=== PATIENT | male | born 1985 | race Caucasian/White ===

== ENCOUNTER 2020-11-25 23:38 | Inpatient (IN) | payer SELFPAY ==
[2020-11-25 23:39] VITALS: BP 103/53; PULSE 117; RESP 21; TEMP 36.5; O2SAT 91; BMI 28.5
--- NOTE | 2020-11-25 23:41 | RAD_ITS ---
HISTORY: left shoulder pain EXAMINATION/TECHNIQUE: XR Shoulder Min 2 Views: COMPARISON: None FINDINGS: BONES/JOINTS: No acute fracture or dislocation. Preservation of the joint spaces. No sclerotic or destructive changes observed. SOFT TISSUES: Diffuse, hazy airspace opacities in the included lung meléndez. No radiopaque foreign body. RAD/Shoulder min 2 Views IMPRESSION: No acute bony abnormality. Hazy left lung airspace disease suspicious for pneumonia. at 0010 Reported and signed by: Matt Aguayo MD Electronically Signed: Matt Aguayo MD at 0:09 EDT Tel , Service support ,
--- NOTE | 2020-11-25 23:42 | EDS_ITS ---
HPI History of Present Illness Chief Complaint: Overdose Informant: EMS Narrative Narrative: 40-year-old male presents with likely opiate overdose. Patient given 2 separate doses of intranasal Narcan after being found unresponsive. Patient does admit to insufflating drugs but does not know what they were or how much he did. Patient is currently on Suboxone and does have a past medical history of opiate abuse. Complaining of left shoulder pain of unknown origin. States it is aching and worse with movement. Patient also complaining of nausea and vomiting. Patient vomited once on scene. PFSH PFSH Allergy/AdvReac Type Severity Reaction Status Date / Time No Known Allergies Allergy Verified 11/26/20 00:02 Social History Smoking Status: Unknown if ever smoked ROS ROS ED Constitutional Constitutional ED: Denies chills, fever(s) or sweats Eyes Eyes: Denies blurry vision, change in vision or diplopia ENT ENT ED: Denies rhinorrhea or sore throat Cardiovascular Cardiovascular: Denies chest pain, orthopnea, palpitations or racing heartbeat Respiratory/Chest Respiratory/Chest: Denies cough, dyspnea, dyspnea on exertion, orthopnea or sputum Gastrointestinal Gastrointestinal: Reports nausea and vomiting; Denies abdominal pain, constipation, diarrhea or melena Genitourinary Genitourinary ED: Denies dysuria, hematuria or urinary frequency Musculoskeletal Musculoskeletal: Reports arthralgias; Denies myalgias or neck pain Integumentary Denies rash Neurologic Neurologic: Denies headache(s), paresthesias or weakness Psychiatric Psychiatric: Denies anxiety or depression Hematologic/Lymphatic Hematologic/Lymphatic: Denies easy bleeding or easy bruising Allergic/Immunologic Allergic/Immunologic ED: Denies mouth swelling or tongue swelling EXAM Physical Exam Const Vital Signs: 11/25/20 23:39 11/26/20 00:03 11/26/20 00:05 Temperature 97.7 F L Temperature Source Temporal Pulse Rate 117 H 113 H Respiratory Rate 21 H 20 H Blood Pressure 103/53 L 108/47 L Blood Pressure Mean 69 67 Pulse Ox 91 88 Oxygen Delivery Method Room Air Room Air Nasal Cannula Oxygen Flow Rate (L/min) 2 11/26/20 00:48 11/26/20 00:51 11/26/20 00:57 Temperature 98.6 F 98.4 F Temperature Source Temporal Temporal Pulse Rate 102 H Respiratory Rate 20 H Blood Pressure 102/65 Blood Pressure Mean 77 Pulse Ox 88 92 Oxygen Delivery Method Nasal Cannula Nasal Cannula Oxygen Flow Rate (L/min) 2 5 11/26/20 01:34 11/26/20 01:38 Temperature 98.4 F 98.4 F Temperature Source Oral Temporal Pulse Rate 126 H 115 H Respiratory Rate 33 H 28 H Blood Pressure 91/54 L 95/58 L Blood Pressure Mean 66 70 Pulse Ox 92 69 Oxygen Delivery Method Nasal Cannula Nasal Cannula Oxygen Flow Rate (L/min) 5 5 Positive well nourished and well developed General Appearance ED: well developed HEENT Reports TM's clear and moist mucous membranes normocephalic and atraumatic Tympanic Membrane ED: Yes TM's clear Eyes PERRL and EOMs intact bilaterally Neck no lymphadenopathy, supple and no JVD Chest Wall inspection of chest normal Resp normal respiratory effort and clear to auscultation bilaterally Cardio regular rate, S1 normal heart sound, S2 normal heart sound and no murmurs Peripheral Pulses: pulses 2+ throughout GI soft to palpation, non-tender and non-distended Back/Spine no CVA tenderness and no thoracic nor lumbar tenderness Extremity normal to inspection Extremity Narrative: TTP of the left shoulder with no overlying skin changes. Strong and palpable pulses. Sensation intact. General Extremety ED: Negative for edema General Extremity: Negative for edema Neuro oriented x3, CN's II-XII intact bilaterally and no sensory deficits noted Sensorium / Orientation: alert Motor Exam: strength 5/5 throughout Psych mental status grossly normal Skin no rashes or lesions noted MDM MDM MDM Narrative Medical decision making narrative: Patient tachycardic and nauseous likely secondary from acute opiate withdrawal. Was given Zofran and Bentyl. Patient is complaining of left shoulder pain so x-ray was done which shows no acute fracture dislocation. It did however show possible left lung airspace disease. X-ray was done which shows significant aspiration. Patient requiring 5 L by nasal cannula to maintain oxygen saturations of 90%. Lab work was obtained and patient was started on Unasyn. Patient has a lactic acidosis of 3. Blood pressure 95 and 110 systolic. Give 1 L of normal saline. Patient was also given 0.4 mg of Narcan IV which did improve his mental status. Given the patient's hypoxemia as well as aspiration he will be admitted for further treatment and evaluation. Lab Data Labs: Laboratory Results - last 24 hr 11/26/20 11/26/20 11/26/20 01:00 01:00 01:00 WBC 11.8 H RBC 4.95 Hgb 14.7 Hct 45.5 MCV 91.9 MCH 29.7 MCHC 32.3 RDW Std Deviation 48.6 H RDW Coeff of Latricia 14.3 Plt Count 246 MPV 9.6 Immature Gran % (Auto) 0.600 Neut % (Auto) 90.1 H Lymph % (Auto) 2.6 L [place] % (Auto) 6.4 Eos % (Auto) 0.0 Baso % (Auto) 0.3 Absolute Neuts (auto) 10.6 H Absolute Lymphs (auto) 0.31 L Nucleated RBC % 0 PT 13.3 INR 1.1 APTT 28.1 Sodium 141 Potassium 3.5 Chloride 107 Carbon Dioxide 27.0 Anion Gap 7 BUN 16 Creatinine 1.38 H Estim Creat Clear Calc 82.00 Est GFR (MDRD) Af Amer 75 Est GFR (MDRD) Non-Af 62 BUN/Creatinine Ratio 11.6 Glucose 75 Lactic Acid Calcium 8.5 Total Bilirubin 0.20 AST 150 H ALT 100 H Alkaline Phosphatase 133 H Total Protein 6.7 Albumin 3.1 L Globulin 3.6 Albumin/Globulin Ratio 0.9 Urine Color Urine Clarity Urine pH Ur Specific [place] Urine Protein Urine Glucose (UA) Urine Ketones Urine Occult Blood Urine Nitrite Urine Bilirubin Urine Urobilinogen Ur Leukocyte Esterase Urine RBC Urine WBC Ur Squamous Epith Cells Urine Bacteria Hyaline Casts Urine Mucus 11/26/20 11/26/20 01:00 01:40 WBC RBC Hgb Hct MCV MCH MCHC RDW Std Deviation RDW Coeff of Latricia Plt Count MPV Immature Gran % (Auto) Neut % (Auto) Lymph % (Auto) [place] % (Auto) Eos % (Auto) Baso % (Auto) Absolute Neuts (auto) Absolute Lymphs (auto) Nucleated RBC % PT INR APTT Sodium Potassium Chloride Carbon Dioxide Anion Gap BUN Creatinine Estim Creat Clear Calc Est GFR (MDRD) Af Amer Est GFR (MDRD) Non-Af BUN/Creatinine Ratio Glucose Lactic Acid 3.0 H* Calcium Total Bilirubin AST ALT Alkaline Phosphatase Total Protein Albumin Globulin Albumin/Globulin Ratio Urine Color Yellow Urine Clarity Sl. Cloudy Urine pH 5.0 Ur Specific [place] 1.030 Urine Protein 30 H Urine Glucose (UA) Normal Urine Ketones Negative Urine Occult Blood 50 H Urine Nitrite Negative Urine Bilirubin Negative Urine Urobilinogen 1 H Ur Leukocyte Esterase Negative Urine RBC 0 SEEN Urine WBC 0-5 SEEN Ur Squamous Epith Cells 0 SEEN Urine Bacteria 1+ Hyaline Casts 0-5 SEEN Urine Mucus 1+ Radiography Diagnostic Testing: Radiology Impression Shoulder X-Ray 11/25/20 23:41 IMPRESSION: No acute bony abnormality. Hazy left lung airspace disease suspicious for pneumonia. at 0010 Reported and signed by: Matt Aguayo MD Electronically Signed: Matt Aguayo MD at 0:09 EDT Tel , Service support , Chest X-Ray 11/26/20 00:14 IMPRESSION: Left-sided and probable early right basilar airspace disease/pneumonia. Electronically Signed: Marika Duran MD at 1:16 EDT , Service support , Rhythm Strip Rhythm Strip: Sinus Tach Rate: 102 Ectopy: None EKG Initial EKG: Attestation: I personally reviewed and interpreted this EKG as follows: Interpretation: No Acute Injury Pattern and Sinus Tachycardia Comments: Sinus tachycardia at a rate of 102 bpm. [place] interval of 132 ms. QTC of [address] changes. Discharge Plan Disposition Disposition: Acute Care Hospital [facility] Discharge Date/Time: 11/26/20 02:02
[2020-11-25] MEDS: Ondansetron ODT 4 MG Tablet PO (23:52)
[2020-11-25] MEDS: Dicyclomine 20 MG/2 ML Vial IM (23:52)
[2020-11-26] VITALS (36 sets, daily range): BP systolic 81–109; BP diastolic 45–75; PULSE 102–136; RESP 14–33; TEMP 36.4–38.1; O2SAT 69–96; BMI 25.2
--- NOTE | 2020-11-26 00:14 | RAD_ITS ---
STUDY: X-RAY CHEST REASON FOR EXAM: Male, 35 years old. pneumonia TECHNIQUE: Single AP portable view of the chest. 2 images COMPARISON: None. FINDINGS: There are superimposed monitor leads. There is hyperinflation. The left hemithorax demonstrate hazy airspace opacification with relative sparing of the left apex, there is minimal right basilar opacification. There is no demonstrated pleural abnormality. Normal size heart. Normal mediastinum and james. Normal visualized pulmonary arteries. Normal visualized aortic arch and descending thoracic aorta. Normal visualized thoracic spine. Normal visualized ribs, clavicles, and shoulders. There is no demonstrated abnormality of the visualized soft tissue structures of the upper abdomen. RAD/Chest 1 View (Portable) IMPRESSION: Left-sided and probable early right basilar airspace disease/pneumonia. Electronically Signed: Marika Duran MD at 1:16 EDT , Service support ,
--- NOTE | 2020-11-26 00:40 | EKG12_ITS ---
Test Reason : OD Blood Pressure : / mmHG Vent. Rate : 102 BPM Atrial Rate : 102 BPM P-R Int : 132 ms QRS Dur : 092 ms QT Int : 332 ms P-R-T Axes : 082 003 078 degrees QTc Int : 432 ms Sinus tachycardia Nonspecific ST and T wave abnormality Abnormal ECG Confirmed by EMIL LAMA, CHRISTIANA ([id number]), editor producer ITALO KENDALL ([id number]) on 11/29/2020 10:32:59 AM Referred By: ARGELIA Confirmed By:CHRISTIANA STEIN MD
[2020-11-26 01:11] LABS: Absolute Lymphocyte Count 0.31 X10^3/uL (0.83-4.51); Absolute Neutrophil Count 10.6 X10^3/uL (2.0-7.7); Basophil# 0.03 X10^3/uL; Basophil% 0.3 % (0-1); Hematocrit 45.5 % (40-54); Hemoglobin 14.7 g/dL (13.0-16.5); Lymphocyte # 0.31 X10^3/ul (0.83-4.51); Lymphocyte % 2.6 % (19-41); Mean Corp Hgb Conc 32.3 g/dL (32-36); Mean Corpuscular Hgb 29.7 pg (27.0-32.0); Mean Corpuscular Volume 91.9 fL (80-94); Mean Platelet Vol. 9.6 fl (6.2-12.0); Monocyte# 0.76 X10^3/uL; Monocyte% 6.4 % (0-10); NRBC Flagged by Analyzer 0 % (0-5); Neutrophil # 10.64 X10^3/uL (2.7-7.7); Neutrophil % 90.1 % (47-70); POSITIVE DIFFERENTIAL YES; Platelet Count 246 K/mm3 (150-450); RBC Distribution Width CV 14.3 % (11.6-14.6); RBC Distribution Width SD 48.6 fl (35.1-43.9); Red Blood Count 4.95 M/mm3 (4.6-6.2); White Blood Count 11.8 K/mm3 (4.4-11.0)
--- NOTE | 2020-11-26 01:14 | ED.RN ---
Pt remains obtunded and difficult to awaken
[2020-11-26] MEDS: 0.9% Normal Saline 1,000 ML 999 ML IV (01:17)
[2020-11-26 01:22] LABS: Partial Thromboplast Time 28.1 Seconds (24.1-36.2)
[2020-11-26 01:25] LABS: ALB/GLOB Ratio 0.9 RATIO (0.9-2.4); AST(SGOT) 150 U/L (15-37); Alanine Aminotransfer ALT/SGPT 100 U/L (16-61); Albumin, Serum 3.1 g/dL (3.2-5.0); Alkaline Phosphatase 133 U/L (45-117); Anion Gap 7 (5-15); BUN 16 mg/dL (7-18); BUN/Creat Ratio 11.6 RATIO (10-20); Calcium,Total 8.5 mg/dL (8.5-10.1); Chloride 107 mmol/L (98-107); Creatinine, Serum 1.38 mg/dL (0.70-1.30); Differential Indicated SCAN CRITERIA MET; EST Glomerular Filtration Rate 62 mL/min (>60); Est Glom Filt Rate - Afr Amer 75 mL/min (>60); Globulin 3.6 g/dL (2.2-4.2); Glucose 75 mg/dL (74-106); Potassium 3.5 mmol/L (3.5-5.1); Protein, Total 6.7 g/dL (6.4-8.2); Sodium Level 141 mmol/L (136-145)
[2020-11-26] MEDS: Naloxone 0.4 MG/ML Syringe IV (01:32)
[2020-11-26 01:33] LABS: International Normalized Ratio 1.1; Prothrombin Time (Protime)PT. 13.3 SECONDS (11.7-14.9)
[2020-11-26 01:55] LABS: Red Blood Cells-Urine 0 SEEN /hpf (0-5); Squamous Epithelial Cells - UA 0 SEEN /hpf (0-5)
[2020-11-26 01:56] LABS: Color, Urine Yellow (Yellow); Glucose, Dipstick Normal (Normal); Ketone-Dipstick Negative (Negative); Leukocyte Esterase-Dipstick Negative /ul (Negative); Nitrite-Dipstick Negative (Negative); Occult Blood-Urine 50 /ul (Negative); Protein-Dipstick 30 mg/dl (Negative); Urine Bilirubin Dipstick Negative (Negative); Urine Clarity Sl. Cloudy (Clear); Urine Urobilinogen 1 mg/dl (Normal)
[2020-11-26 02:02] LABS: Bacteria 1+ /hpf (None Seen); Mucous, Urine 1+ /hpf (<or=2+); White Blood Cells 0-5 SEEN /hpf (0-5)
[2020-11-26 02:03] LABS: Hyaline Cast 0-5 SEEN /lpf (0-5)
--- NOTE | 2020-11-26 02:39 | HP.PCM.HOS_ITS ---
HPI - General General Date of Admission: 11/26/20 Date of Service: 11/26/20 Chief Complaint: Drug overdose, presumed opiate overdose HPI Narrative MINNIE HERNANDEZ, is a 35 M who was brought into the emergency room at [facility] after being found unresponsive at a local motel. A drug overdose was suspected and the patient was given 2 doses of Narcan with return of spontaneous respirations and some alertness. Patient was noted to have vomited at some point before the squad arrived. Patient was not able to give a clear picture of what drugs he took. Work-up in the emergency room revealed the patient's white blood cell count to be slightly elevated, lactic acid was elevated, patient's liver profile showed an elevated AST, ALT, and alkaline phosphatase. Urine tox screen was not collected by the emergency room physician. Patient's chest x-ray showed a diffuse infiltrative pattern over the left lung. Patient was given Unasyn in the emergency room, I have elected to continue IV antibiotics, it is unknown whether the patient has an aspiration pneumonia or just aspiration. Patient will be admitted to PCU, he is stable at this time on nasal cannula oxygen. Patient supposedly was on Subutex as an outpatient, I have elected at this time not to place the patient back on Subutex due to his lethargy. [facility] unable to obtain Allergy/AdvReac Type Severity Reaction Status Date / Time No Known Allergies Allergy Verified 11/26/20 00:02 unable to obtain unable to obtain Social History Smoking Status: Unknown if ever smoked ROS Review of Systems ROS Unobtainable: due to encephalopathy and due to mental status Vital Signs Vital Signs Vital Signs: 11/25/20 23:39 11/26/20 00:03 11/26/20 00:05 Temperature 97.7 F L Temperature Source Temporal Pulse Rate 117 H 113 H Respiratory Rate 21 H 20 H Blood Pressure 103/53 L 108/47 L Blood Pressure Mean 69 67 Blood Pressure Source Blood Pressure Position Blood Pressure Location Pulse Ox 91 88 Oxygen Delivery Method Room Air Room Air Nasal Cannula Oxygen Flow Rate (L/min) 2 11/26/20 00:48 11/26/20 00:51 11/26/20 00:57 Temperature 98.6 F 98.4 F Temperature Source Temporal Temporal Pulse Rate 102 H Respiratory Rate 20 H Blood Pressure 102/65 Blood Pressure Mean 77 Blood Pressure Source Blood Pressure Position Blood Pressure Location Pulse Ox 88 92 Oxygen Delivery Method Nasal Cannula Nasal Cannula Oxygen Flow Rate (L/min) 2 5 11/26/20 01:34 11/26/20 01:38 11/26/20 01:49 Temperature 98.4 F 98.4 F 98.4 F Temperature Source Oral Temporal Temporal Pulse Rate 126 H 115 H Respiratory Rate 33 H 28 H Blood Pressure 91/54 L 95/58 L Blood Pressure Mean 66 70 Blood Pressure Source Blood Pressure Position Blood Pressure Location Pulse Ox 92 69 Oxygen Delivery Method Nasal Cannula Nasal Cannula Oxygen Flow Rate (L/min) 5 5 11/26/20 02:00 11/26/20 02:29 Temperature 98.5 F 98.7 F Temperature Source Temporal Temporal Pulse Rate 107 H 110 H Respiratory Rate 22 H 18 Blood Pressure 103/75 109/65 Blood Pressure Mean 84 79 Blood Pressure Source Monitor Blood Pressure Position Semi-Fowlers Blood Pressure Location Right Arm Pulse Ox 96 95 Oxygen Delivery Method Nasal Cannula Nasal Cannula Oxygen Flow Rate (L/min) 5 5 Weight Weight: 91.6 kg Body Mass Index (BMI) 25.2 Physical Exam Const no apparent distress and average body habitus Constitutional Narrative: Patient is lethargic and somnolent and was not able to answer any questions General Appearance: well kempt and well developed Orientation / Consciousness: awake, oriented to person, oriented to place and oriented to time HEENT normocephalic, head/scalp atraumatic and moist oral mucous membranes Eyes PERRL, EOMs intact bilaterally and conjunctivae normal Neck nuchal rigidity, supple, no JVD, thyroid normal and no carotid bruits General: trachea midline Resp normal respiratory effort, no retractions, no use of accessory muscles and clear to auscultation bilaterally Auscultation: Negative for rales, rhonchi or wheezes Cardio regular rate, regular rhythm, S1 normal heart sound, S2 normal heart sound, no murmurs, no rub, no gallops and no clicks GI normal to inspection, nondistended, normoactive bowel sounds, soft to palpation, non-tender and non-distended Extremity no clubbing, cyanosis or edema Skin no rashes or lesions noted and skin turgor normal General Skin Exam: no breakdown Neuro CN's II-XII intact bilaterally and no sensory deficits noted Neuro Narrative: Patient is lethargic and somnolent, he does respond to verbal stimulation and painful stimulation but does not carry on a conversation Psych thought process normal Psych Narrative: Patient is somnolent and lethargic Results Lab / Micro Data Result Diagrams: 11/26/20 01:00 11/26/20 01:00 Labs: Laboratory Results - last 24 hr 11/26/20 11/26/20 11/26/20 01:00 01:00 01:00 WBC 11.8 H RBC 4.95 Hgb 14.7 Hct 45.5 MCV 91.9 MCH 29.7 MCHC 32.3 RDW Std Deviation 48.6 H RDW Coeff of Latricia 14.3 Plt Count 246 MPV 9.6 Immature Gran % (Auto) 0.600 Neut % (Auto) 90.1 H Lymph % (Auto) 2.6 L [place] % (Auto) 6.4 Eos % (Auto) 0.0 Baso % (Auto) 0.3 Absolute Neuts (auto) 10.6 H Absolute Lymphs (auto) 0.31 L Nucleated RBC % 0 PT 13.3 INR 1.1 APTT 28.1 Sodium 141 Potassium 3.5 Chloride 107 Carbon Dioxide 27.0 Anion Gap 7 BUN 16 Creatinine 1.38 H Estim Creat Clear Calc 82.00 Est GFR (MDRD) Af Amer 75 Est GFR (MDRD) Non-Af 62 BUN/Creatinine Ratio 11.6 Glucose 75 Lactic Acid Calcium 8.5 Total Bilirubin 0.20 AST 150 H ALT 100 H Alkaline Phosphatase 133 H Total Protein 6.7 Albumin 3.1 L Globulin 3.6 Albumin/Globulin Ratio 0.9 Urine Color Urine Clarity Urine pH Ur Specific [place] Urine Protein Urine Glucose (UA) Urine Ketones Urine Occult Blood Urine Nitrite Urine Bilirubin Urine Urobilinogen Ur Leukocyte Esterase Urine RBC Urine WBC Ur Squamous Epith Cells Urine Bacteria Hyaline Casts Urine Mucus 11/26/20 11/26/20 01:00 01:40 WBC RBC Hgb Hct MCV MCH MCHC RDW Std Deviation RDW Coeff of Latricia Plt Count MPV Immature Gran % (Auto) Neut % (Auto) Lymph % (Auto) [place] % (Auto) Eos % (Auto) Baso % (Auto) Absolute Neuts (auto) Absolute Lymphs (auto) Nucleated RBC % PT INR APTT Sodium Potassium Chloride Carbon Dioxide Anion Gap BUN Creatinine Estim Creat Clear Calc Est GFR (MDRD) Af Amer Est GFR (MDRD) Non-Af BUN/Creatinine Ratio Glucose Lactic Acid 3.0 H* Calcium Total Bilirubin AST ALT Alkaline Phosphatase Total Protein Albumin Globulin Albumin/Globulin Ratio Urine Color Yellow Urine Clarity Sl. Cloudy Urine pH 5.0 Ur Specific [place] 1.030 Urine Protein 30 H Urine Glucose (UA) Normal Urine Ketones Negative Urine Occult Blood 50 H Urine Nitrite Negative Urine Bilirubin Negative Urine Urobilinogen 1 H Ur Leukocyte Esterase Negative Urine RBC 0 SEEN Urine WBC 0-5 SEEN Ur Squamous Epith Cells 0 SEEN Urine Bacteria 1+ Hyaline Casts 0-5 SEEN Urine Mucus 1+ Rhythm Strip Rhythm Strip: Sinus Tach Rate: 102 Ectopy: None Radiology Impression Shoulder X-Ray 11/25/20 23:41 IMPRESSION: No acute bony abnormality. Hazy left lung airspace disease suspicious for pneumonia. at 0010 Reported and signed by: Matt Aguayo MD Electronically Signed: Matt Aguayo MD at 0:09 EDT Tel , Service support , Chest X-Ray 11/26/20 00:14 IMPRESSION: Left-sided and probable early right basilar airspace disease/pneumonia. Electronically Signed: Marika Duran MD at 1:16 EDT , Service support , Assessment & Plan Assessment/Plan (1) Drug overdose: PLAN: 1. Drug overdose-most likely secondary to some sort of opiate overdose-patient will be admitted to PCU, will be monitored on telemetry and his pulse ox will be monitored #2 hypoxia secondary to drug overdose and aspiration (questionable aspiration pneumonia)-patient is stable on nasal cannula oxygen at this time, we will be given aerosol treatments #3 acute aspiration pneumonitis versus aspiration pneumonia-patient will remain on IV Unasyn for now, labs will be monitored, pulse ox will be monitored #4 history of hepatitis-per squad-patient's liver enzymes are elevated, I choose not to perform hepatitis profile on the patient at this time, hopefully when he is more alert he can give a better picture of his hepatitis history. #5 chronic drug abuse-suspect at least opiate abuse-I will obtain a urine tox screen Charges/Coding Visit Charges Inpatient E&M: 69249 Init Hosp L3
[2020-11-26] MEDS: 0.9% Normal Saline 1,000 ML 100 ML IV ×3 (02:58→22:09)
[2020-11-26 03:13] LABS: Amphetamine Urine VISTA POSITIVE (<1000 ng/mL); Barbiturate Urine VISTA NEGATIVE (< 200 ng/mL); Benzodiazepine Urine VISTA NEGATIVE (< 200 ng/mL); Cocaine Urine VISTA NEGATIVE (< 300 ng/mL); Ecstacy Urine VISTA NEGATIVE (< 500 ng/mL); Methadone Urine VISTA NEGATIVE (< 300 ng/mL); PCP Urine VISTA NEGATIVE (< 25 ng/mL); THC Urine VISTA NEGATIVE (< 50 ng/mL); Vista UDS pH Range 5
[2020-11-26] MEDS: Ondansetron 4 MG/2 ML Vial IV (03:35)
[2020-11-26 05:06] LABS: Reflex Lactate? Y
[2020-11-26 06:05] LABS: Lactic Acid 2.6 mmol/L (0.4-1.9)
--- NOTE | 2020-11-26 11:29 | PN.HOSP_ITS ---
Subjective Subjective Patient seen and examined. He was admitted with a complaint of drug overdose. He admitted after being found unresponsive at a local motel. LActic acid was elevated, and wbc as also mildly elevated. CXR was indicative of diffuse infiltrative pattern over the left lung, and was sarted on unasyn. Patient seen. Patient is very lethargic, though he responds to voice and opens his eyes when called. Unable to do review of systems as he is very lethargic. Objective Data Objective Data Vital Signs: Vital Signs Temp Pulse Resp BP Pulse Ox 98.0 F 109 H 18 92/55 L 92 11/26/20 11:00 11/26/20 11:00 11/26/20 11:00 11/26/20 11:00 11/26/20 11:00 Oxygen Flow Rate (L/min) 2 Oxygen Delivery Method Nasal Cannula Weight: 201 lb 15.095 oz Body Mass Index (BMI) 25.2 Intake & Output: Intake and Output for Last 24 Hours 11/24/20 11/25/20 11/26/20 23:59 23:59 23:59 Intake Total 1464 / 1464 Balance 1464 / 1464 Lab / Micro Data Result Diagrams: 11/26/20 01:00 11/26/20 01:00 Labs: Laboratory Results - last 24 hr 11/26/20 11/26/20 11/26/20 01:00 01:00 01:00 WBC 11.8 H RBC 4.95 Hgb 14.7 Hct 45.5 MCV 91.9 MCH 29.7 MCHC 32.3 RDW Std Deviation 48.6 H RDW Coeff of Latricia 14.3 Plt Count 246 MPV 9.6 Immature Gran % (Auto) 0.600 Neut % (Auto) 90.1 H Lymph % (Auto) 2.6 L Bailey % (Auto) 6.4 Eos % (Auto) 0.0 Baso % (Auto) 0.3 Absolute Neuts (auto) 10.6 H Absolute Lymphs (auto) 0.31 L Nucleated RBC % 0 PT 13.3 INR 1.1 APTT 28.1 Sodium 141 Potassium 3.5 Chloride 107 Carbon Dioxide 27.0 Anion Gap 7 BUN 16 Creatinine 1.38 H Estim Creat Clear Calc 82.00 Est GFR (MDRD) Af Amer 75 Est GFR (MDRD) Non-Af 62 BUN/Creatinine Ratio 11.6 Glucose 75 Lactic Acid Calcium 8.5 Total Bilirubin 0.20 AST 150 H ALT 100 H Alkaline Phosphatase 133 H Total Protein 6.7 Albumin 3.1 L Globulin 3.6 Albumin/Globulin Ratio 0.9 Urine Color Urine Clarity Urine pH Ur Specific [place] Urine Protein Urine Glucose (UA) Urine Ketones Urine Occult Blood Urine Nitrite Urine Bilirubin Urine Urobilinogen Ur Leukocyte Esterase Urine RBC Urine WBC Ur Squamous Epith Cells Urine Bacteria Hyaline Casts Urine Mucus Urine Opiates Screen Urine Methadone Screen Ur Barbiturates Screen Ur Phencyclidine Scrn Ur Amphetamines Screen U Methamphetamin-MDMA U Benzodiazepines Scrn Urine Cocaine Screen U Cannabinoids Screen Ur Drug Screen Comment 11/26/20 11/26/20 11/26/20 01:00 01:40 01:40 WBC RBC Hgb Hct MCV MCH MCHC RDW Std Deviation RDW Coeff of Latricia Plt Count MPV Immature Gran % (Auto) Neut % (Auto) Lymph % (Auto) Bailey % (Auto) Eos % (Auto) Baso % (Auto) Absolute Neuts (auto) Absolute Lymphs (auto) Nucleated RBC % PT INR APTT Sodium Potassium Chloride Carbon Dioxide Anion Gap BUN Creatinine Estim Creat Clear Calc Est GFR (MDRD) Af Amer Est GFR (MDRD) Non-Af BUN/Creatinine Ratio Glucose Lactic Acid 3.0 H* Calcium Total Bilirubin AST ALT Alkaline Phosphatase Total Protein Albumin Globulin Albumin/Globulin Ratio Urine Color Yellow Urine Clarity Sl. Cloudy Urine pH 5.0 Ur Specific [place] 1.030 Urine Protein 30 H Urine Glucose (UA) Normal Urine Ketones Negative Urine Occult Blood 50 H Urine Nitrite Negative Urine Bilirubin Negative Urine Urobilinogen 1 H Ur Leukocyte Esterase Negative Urine RBC 0 SEEN Urine WBC 0-5 SEEN Ur Squamous Epith Cells 0 SEEN Urine Bacteria 1+ Hyaline Casts 0-5 SEEN Urine Mucus 1+ Urine Opiates Screen NEGATIVE Urine Methadone Screen NEGATIVE Ur Barbiturates Screen NEGATIVE Ur Phencyclidine Scrn NEGATIVE Ur Amphetamines Screen POSITIVE H U Methamphetamin-MDMA NEGATIVE U Benzodiazepines Scrn NEGATIVE Urine Cocaine Screen NEGATIVE U Cannabinoids Screen NEGATIVE Ur Drug Screen Comment 11/26/20 04:50 WBC RBC Hgb Hct MCV MCH MCHC RDW Std Deviation RDW Coeff of Latricia Plt Count MPV Immature Gran % (Auto) Neut % (Auto) Lymph % (Auto) Bailey % (Auto) Eos % (Auto) Baso % (Auto) Absolute Neuts (auto) Absolute Lymphs (auto) Nucleated RBC % PT INR APTT Sodium Potassium Chloride Carbon Dioxide Anion Gap BUN Creatinine Estim Creat Clear Calc Est GFR (MDRD) Af Amer Est GFR (MDRD) Non-Af BUN/Creatinine Ratio Glucose Lactic Acid 2.6 H* Calcium Total Bilirubin AST ALT Alkaline Phosphatase Total Protein Albumin Globulin Albumin/Globulin Ratio Urine Color Urine Clarity Urine pH Ur Specific [place] Urine Protein Urine Glucose (UA) Urine Ketones Urine Occult Blood Urine Nitrite Urine Bilirubin Urine Urobilinogen Ur Leukocyte Esterase Urine RBC Urine WBC Ur Squamous Epith Cells Urine Bacteria Hyaline Casts Urine Mucus Urine Opiates Screen Urine Methadone Screen Ur Barbiturates Screen Ur Phencyclidine Scrn Ur Amphetamines Screen U Methamphetamin-MDMA U Benzodiazepines Scrn Urine Cocaine Screen U Cannabinoids Screen Ur Drug Screen Comment Radiography Diagnostic Testing: Radiology Impression Shoulder X-Ray 11/25/20 23:41 IMPRESSION: No acute bony abnormality. Hazy left lung airspace disease suspicious for pneumonia. at 0010 Reported and signed by: Matt Aguayo MD Electronically Signed: Matt Aguayo MD at 0:09 EDT Tel , Service support , Chest X-Ray 11/26/20 00:14 IMPRESSION: Left-sided and probable early right basilar airspace disease/pneumonia. Electronically Signed: Marika Duran MD at 1:16 EDT , Service support , Rhythm Strip Rhythm Strip: Sinus Tach Rate: 102 Ectopy: None Physical Exam Const Constitutional Narrative: lethargic, minimally responsive. Exam Limitations: altered mental status HEENT head/scalp atraumatic and moist oral mucous membranes Head and Scalp: normocephalic Eyes PERRL, EOMs intact bilaterally and conjunctivae normal Neck no lymphadenopathy Resp Resp Narrative: diminished breath sounds bibasally, few crackles bibasally. on 2L of oxygen Cardio Cardio Narrative: tachycardic GI normal to inspection, nondistended, normoactive bowel sounds, soft to palpation, non-tender and non-distended Extremity normal to inspection, full ROM and no clubbing, cyanosis or edema Peripheral Pulses: Yes pulses 2+ throughout Skin no rashes or lesions noted Neuro Neuro Narrative: confused, moving all limbs spontaneously Assessment & Plan Assessment/Plan (1) Drug overdose: (2) Aspiration pneumonitis: PLAN: #Acute metabolic encephalopathy due to drug overdose * subutex held on admission due to patient's metabolic encephalopathy * being hydrated gently with IVF * has been tachycardic * wbc is 11.8 #Acute aspiration insufficiency due to aspiration pneumonitis * on 4L of oxygen, titrate to maintain sats>90% * on IV unasyn * wbc is 11.8 * urine bacteria showed 1+ bacteria * #History of hepatitis * liver enzymes were mildly elevated. Likely due to history of hepatitis. * * #Lactic acidosis: lactic acid trended down. #Chronic dug abuse: urine tox was positive for amphetamines. DVT prophylaxis: lovenox. Charges/Coding Visit Charges Inpatient E&M: 70346 Subs Hosp L3
--- NOTE | 2020-11-26 13:06 | CASEMGMT ---
Attempted x2 at 1032 and 1306 to complete CM assessment and pt is not able to wake up enough to answer questions at this time. CM to attempt again later. SStaten RN CM
[2020-11-26] MEDS: Albuterol 2.5 MG/3 ML VIAL.NEB. INHALATION (13:27)
[2020-11-27] VITALS (12 sets, daily range): BP systolic 101–133; BP diastolic 60–68; PULSE 90–104; RESP 15–18; TEMP 37.1–38.2; O2SAT 94–97
[2020-11-27 07:08] LABS: Absolute Neutrophil Count 16.3 X10^3/uL (2.0-7.7); Basophil# 0.11 X10^3/uL; Basophil% 0.6 % (0-1); Eosinophil# 0.14 X10^3/uL; Eosinophils% 0.8 % (0-5); Hematocrit 42.3 % (40-54); Hemoglobin 14.1 g/dL (13.0-16.5); Lymphocyte % 2.7 % (19-41); Mean Corp Hgb Conc 33.3 g/dL (32-36); Mean Corpuscular Hgb 30.2 pg (27.0-32.0); Mean Corpuscular Volume 90.6 fL (80-94); Mean Platelet Vol. 10.2 fl (6.2-12.0); Monocyte# 0.93 X10^3/uL; NRBC Flagged by Analyzer 0 % (0-5); Neutrophil # 16.34 X10^3/uL (2.7-7.7); Neutrophil % 88.4 % (47-70); POSITIVE DIFFERENTIAL YES; POSITIVE MORPHOLOGY YES; Platelet Count 161 K/mm3 (150-450); RBC Distribution Width CV 14.9 % (11.6-14.6); RBC Distribution Width SD 49.6 fl (35.1-43.9); Red Blood Count 4.67 M/mm3 (4.6-6.2); White Blood Count 18.5 K/mm3 (4.4-11.0)
[2020-11-27 07:12] LABS: Differential Indicated SCAN CRITERIA MET
[2020-11-27 07:39] LABS: ALB/GLOB Ratio 0.6 RATIO (0.9-2.4); AST(SGOT) 183 U/L (15-37); Alanine Aminotransfer ALT/SGPT 95 U/L (16-61); Albumin, Serum 2.1 g/dL (3.2-5.0); Alkaline Phosphatase 73 U/L (45-117); Anion Gap 5 (5-15); BUN 21 mg/dL (7-18); BUN/Creat Ratio 19.1 RATIO (10-20); Calcium,Total 7.8 mg/dL (8.5-10.1); Chloride 106 mmol/L (98-107); EST Glomerular Filtration Rate 81 mL/min (>60); Est Glom Filt Rate - Afr Amer 98 mL/min (>60); Estimated Creatinine Clearance 112.03 ml/min; Globulin 3.8 g/dL (2.2-4.2); Glucose 98 mg/dL (74-106); Potassium 3.9 mmol/L (3.5-5.1); Protein, Total 5.9 g/dL (6.4-8.2); Sodium Level 136 mmol/L (136-145)
[2020-11-27] MEDS: 0.9% Normal Saline 1,000 ML 100 ML IV ×2 (09:15→18:10)
[2020-11-27] MEDS: BUPRENORPHINE HCL 8 MG TAB.SUBL SL (09:19)
--- NOTE | 2020-11-27 09:25 | CASEMGMT ---
AILEEN CAICEDO assessment: Face to Face with patient for initial transition planning/care coordination assessment. AILEEN CAICEDO introduced self and role at [facility], pt voices understanding and consents to assessment. Pt is lying in bed in no distress and will not open eyes during assessment. Pt is A/Ox4 and answers all questions appropriately. Care providers, pharmacy, and demographics verified/updated. Presentation: EMS called for OD, unknown substance Admitting dx: Acute aspiration, drug OD PCP: Pt states no current PCP and pt lives in [place] Specialists: none Preferred Pharmacy: [facility] Insurance: Pt states has insurance thru job but does not know name or have info. Pt advised to call [facility] PFS after d/c to update on info once obtained. PFS contact info provided by . Prescription Benefit: Self-pay at this time as pt does not know insurance info. Living Will/HPOA: Pt states no LW/HPOA and declines info. LNOK: Eduardo Agrawal, friend Living Arrangements: Pt states is currently here for a job but will return to [facility] once jobs complete and states no concerns at home. Pt states is normally independent with ADL's. Transportation: Pt states drives self and states no transportation concerns. DME/HHC: Pt states no current DME or need for any further DME. Pt states no hx of HHC or SNF. Pt states no concerns with going home at time of discharge. 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 Pt states does smoke 1/2 pk cigarettes daily but does not drink ETOH. Pt states occasionally does recreational drugs but is not sure what all he did prior to coming in. Pt states he has resources to f/u with in [place] regarding same. Pt states no further questions/concerns/needs. CM to follow for any further discharge planning/needs. Advised pt to ask for CM if any further questions/concerns/needs arise, voices understanding. Pt goal: Home Plan: Home S[place]en AILEEN CAICEDO
--- NOTE | 2020-11-27 11:07 | CASEMGMT ---
TOM Note: Referral Source: [facility] Referral Reason: Listed as Self Pay but per CM has insurance but unable to provide insurance information SW met with patient. SW asked patient if there were anybody that this senior copywriter could call at to determine patient's insurance and patient said no. Patient did eventually open his eyes during conversation. Patient said that he could not contact anyone now regarding his insurance. SW offered to be of assistance to obtain insurance information and patient declined. Patient was advised that this senior copywriter provided him with the contact number for [facility] Financial Assistance department with both local and toll free number and this paper was placed at patient's bedside. SW remains available for support. Plan: Social Work will follow up as needed. Pooja [address]
--- NOTE | 2020-11-27 12:06 | PN.HOSP_ITS ---
Subjective Subjective Patient seen and examined. He remains quite lethargic though he is arousable to voice. He has no complaints. He is on 2 L of oxygen. Review of systems otherwise negative. WBC is 18.5 today. Objective Data Objective Data Vital Signs: Vital Signs Temp Pulse Resp BP Pulse Ox 98.9 F 102 H 17 108/63 96 11/27/20 06:49 11/27/20 07:00 11/27/20 06:49 11/27/20 06:49 11/27/20 07:34 Oxygen Flow Rate (L/min) 2 Oxygen Delivery Method Nasal Cannula Weight: 201 lb 15.095 oz Body Mass Index (BMI) 25.2 Intake & Output: Intake and Output for Last 24 Hours 11/25/20 11/26/20 11/27/20 23:59 23:59 23:59 Intake Total 4331.33 / 4331.33 1240.67 / 1240.67 Output Total 1350 / 1350 375 / 375 Balance 2981.33 / 2981.33 865.67 / 865.67 Lab / Micro Data Result Diagrams: 11/27/20 06:55 11/27/20 06:55 Labs: Laboratory Results - last 24 hr 11/27/20 11/27/20 06:55 06:55 WBC 18.5 H RBC 4.67 Hgb 14.1 Hct 42.3 MCV 90.6 MCH 30.2 MCHC 33.3 RDW Std Deviation 49.6 H RDW Coeff of Latricia 14.9 H Plt Count 161 MPV 10.2 Immature Gran % (Auto) 2.500 H Neut % (Auto) 88.4 H Lymph % (Auto) 2.7 L [place] % (Auto) 5.0 Eos % (Auto) 0.8 Baso % (Auto) 0.6 Absolute Neuts (auto) 16.3 H Absolute Lymphs (auto) 0.50 L Nucleated RBC % 0 Sodium 136 Potassium 3.9 Chloride 106 Carbon Dioxide 25.0 Anion Gap 5 BUN 21 H Creatinine 1.10 Estim Creat Clear Calc 112.03 Est GFR (MDRD) Af Amer 98 Est GFR (MDRD) Non-Af 81 BUN/Creatinine Ratio 19.1 Glucose 98 Calcium 7.8 L Total Bilirubin 0.80 AST 183 H ALT 95 H Alkaline Phosphatase 73 Total Protein 5.9 L Albumin 2.1 L Globulin 3.8 Albumin/Globulin Ratio 0.6 L Micro: Microbiology 11/26/20 01:40 Urine Catheter - Catheter Urine Culture - Preliminary Culture exhibits no growth. Rhythm Strip Rhythm Strip: Sinus Tach Rate: 102 Ectopy: None Physical Exam Const no apparent distress and average body habitus Constitutional Narrative: lethargic, General Appearance: well kempt and well developed Orientation / Consciousness: awake, oriented to person, oriented to place and oriented to time Exam Limitations: altered mental status HEENT normocephalic, head/scalp atraumatic and moist oral mucous membranes Head and Scalp: normocephalic Eyes PERRL, EOMs intact bilaterally and conjunctivae normal Neck nuchal rigidity, no lymphadenopathy, supple, no JVD, thyroid normal and no carotid bruits General: trachea midline Resp normal respiratory effort, no retractions, no use of accessory muscles and clear to auscultation bilaterally Resp Narrative: diminished breath sounds bibasally, few crackles bibasally. on 2L of oxygen Auscultation: Negative for rales, rhonchi or wheezes Cardio regular rate, regular rhythm, S1 normal heart sound, S2 normal heart sound, no murmurs, no rub, no gallops and no clicks Cardio Narrative: tachycardic GI normal to inspection, nondistended, normoactive bowel sounds, soft to palpation, non-tender and non-distended Extremity normal to inspection, full ROM and no clubbing, cyanosis or edema Skin no rashes or lesions noted and skin turgor normal General Skin Exam: no breakdown Neuro CN's II-XII intact bilaterally and no sensory deficits noted Neuro Narrative: confused, moving all limbs spontaneously Psych thought process normal Psych Narrative: Patient is somnolent and lethargic Assessment & Plan Assessment/Plan (1) Drug overdose: (2) Aspiration pneumonitis: PLAN: #Acute metabolic encephalopathy due to drug overdose * subutex held on admission due to patient's metabolic encephalopathy * being hydrated gently with IVF * has been tachycardic * wbc is up to 18.5 otday #Acute aspiration insufficiency due to aspiration pneumonitis * on 4L of oxygen, titrate to maintain sats>90% * on IV unasyn * wbc is up to 18.5 today * urine bacteria showed 1+ bacteria * blood cultures pending. Continue IV unasyn. * #History of hepatitis * liver enzymes were mildly elevated. Likely due to history of hepatitis. * * #Lactic acidosis:resolved #Chronic dug abuse: urine tox was positive for amphetamines. DVT prophylaxis: lovenox. Charges/Coding Visit Charges Inpatient E&M: 67228 Subs Hosp L3
[2020-11-27] MEDS: Acetaminophen 325 MG Tablet 650 MG PO ×2 (13:20→20:56)
[2020-11-28] VITALS (10 sets, daily range): BP systolic 105–120; BP diastolic 62–71; PULSE 84–92; RESP 17–20; TEMP 37.2–37.9; O2SAT 94–97
[2020-11-28] MEDS: 0.9% Normal Saline 1,000 ML 100 ML IV ×2 (04:11→14:16)
--- NOTE | 2020-11-28 10:08 | PN.HOSP_ITS ---
Subjective Subjective Patient seen and examined. He is still lethargic, but more responsive today and asking questions. He complains of feeling thirsty. He also complains of pain in his RUE due to his IV infiltrating. Review of systems otherwise negative. Objective Data Objective Data Vital Signs: Vital Signs Temp Pulse Resp BP Pulse Ox 99.1 F 86 20 H 120/68 96 11/28/20 07:59 11/28/20 07:59 11/28/20 07:59 11/28/20 07:59 11/28/20 07:59 Oxygen Flow Rate (L/min) 2 Oxygen Delivery Method Nasal Cannula Weight: 201 lb 15.095 oz Body Mass Index (BMI) 25.2 Intake & Output: Intake and Output for Last 24 Hours 11/26/20 11/27/20 11/28/20 23:59 23:59 23:59 Intake Total 4331.33 / 4331.33 3468.01 / 3468.01 882.33 / 882.33 Output Total 1350 / 1350 1999 / 1999 400 / 400 Balance 2981.33 / 2981.33 1468.01 / 1468.01 482.33 / 482.33 Lab / Micro Data Result Diagrams: 11/28/20 11:10 11/28/20 11:10 Micro: Microbiology 11/26/20 01:40 Urine Catheter - Catheter Urine Culture - Final Culture exhibits no growth. Rhythm Strip Rhythm Strip: Sinus Tach Rate: 102 Ectopy: None Physical Exam Const alert, no apparent distress and average body habitus Constitutional Narrative: lethargic, General Appearance: well kempt and well developed Orientation / Consciousness: awake, oriented to person, oriented to place and oriented to time Exam Limitations: altered mental status HEENT normocephalic, head/scalp atraumatic and moist oral mucous membranes Eyes PERRL, EOMs intact bilaterally and conjunctivae normal Neck nuchal rigidity, no lymphadenopathy, supple, no JVD, thyroid normal and no carotid bruits General: trachea midline Resp normal respiratory effort, no retractions, no use of accessory muscles and clear to auscultation bilaterally Resp Narrative: diminished breath sounds bibasally, few crackles bibasally. on 2L of oxygen Auscultation: Negative for rales, rhonchi or wheezes Cardio regular rate, regular rhythm, S1 normal heart sound, S2 normal heart sound, no murmurs, no rub, no gallops and no clicks Cardio Narrative: tachycardic GI normal to inspection, nondistended, normoactive bowel sounds, soft to palpation, non-tender and non-distended Extremity normal to inspection, full ROM and no clubbing, cyanosis or edema Skin no rashes or lesions noted and skin turgor normal Skin Narrative: both UEs swollen and warm to touch, difficult to assess for erythema due to multiple extensive colorful tattoos over both UEs. both distal radial pulses palpable and strong General Skin Exam: no breakdown Neuro CN's II-XII intact bilaterally and no sensory deficits noted Neuro Narrative: confused, moving all limbs spontaneously Psych thought process normal Psych Narrative: more alert and communicative today Assessment & Plan Assessment/Plan (1) Drug overdose: (2) Aspiration pneumonitis: PLAN: #Acute metabolic encephalopathy due to drug overdose * subutex held on admission due to patient's metabolic encephalopathy * patient is more alert and communicative today. * wbc today is pending * encourage working wiht PT/OT and getting out of bed. #Acute aspiration insufficiency due to aspiration pneumonitis * now down to 2L of oxygen, titrate to maintain sats>90% * on IV unasyn * urine bacteria showed 1+ bacteria * blood cultures pending. On IV unasyn. * #History of hepatitis * liver enzymes were mildly elevated. Likely due to history of hepatitis. * to follow up with PCP on outpatient basis * #LUE swelling * has swelling and pain in both UEs. Due to his history of IV drug use, will get xrays of both UEs to be on the safer side. * #Lactic acidosis:resolved #Chronic dug abuse: urine tox was positive for amphetamines. Counseled to quit. DVT prophylaxis: lovenox. Charges/Coding Visit Charges Inpatient E&M: 93939 Subs Hosp L2
[2020-11-28 11:31] LABS: Absolute Lymphocyte Count 0.89 X10^3/uL (0.83-4.51); Absolute Neutrophil Count 12.3 X10^3/uL (2.0-7.7); Basophil# 0.08 X10^3/uL; Basophil% 0.6 % (0-1); Eosinophil# 0.28 X10^3/uL; Eosinophils% 1.9 % (0-5); Hematocrit 36.8 % (40-54); Hemoglobin 12.8 g/dL (13.0-16.5); Lymphocyte # 0.89 X10^3/ul (0.83-4.51); Lymphocyte % 6.2 % (19-41); Mean Corp Hgb Conc 34.8 g/dL (32-36); Mean Corpuscular Hgb 31.7 pg (27.0-32.0); Mean Corpuscular Volume 91.1 fL (80-94); Mean Platelet Vol. 10.3 fl (6.2-12.0); Monocyte# 0.73 X10^3/uL; Monocyte% 5.1 % (0-10); NRBC Flagged by Analyzer 0 % (0-5); Neutrophil # 12.33 X10^3/uL (2.7-7.7); Neutrophil % 85.5 % (47-70); POSITIVE COUNT YES; Platelet Count 153 K/mm3 (150-450); RBC Distribution Width CV 14.4 % (11.6-14.6); RBC Distribution Width SD 47.7 fl (35.1-43.9); Red Blood Count 4.04 M/mm3 (4.6-6.2); White Blood Count 14.4 K/mm3 (4.4-11.0)
[2020-11-28 11:35] LABS: Differential Indicated SCAN CRITERIA MET
[2020-11-28 11:54] LABS: Platelet Estimate ADEQUATE (ADEQ); Platelet Morphology LARGE
[2020-11-28 12:01] LABS: Anion Gap 4 (5-15); BUN 16 mg/dL (7-18); BUN/Creat Ratio 18.9 RATIO (10-20); Calcium,Total 8.6 mg/dL (8.5-10.1); Chloride 109 mmol/L (98-107); Creatinine, Serum 0.85 mg/dL (0.70-1.30); EST Glomerular Filtration Rate 109 mL/min (>60); Est Glom Filt Rate - Afr Amer 132 mL/min (>60); Estimated Creatinine Clearance 144.98 ml/min; Glucose 150 mg/dL (74-106); Sodium Level 130 mmol/L (136-145)
--- NOTE | 2020-11-28 12:39 | RAD_ITS ---
HISTORY: bilateral UE swelling, history of IV drug use EXAMINATION/TECHNIQUE: XR Forearm 2 Views: COMPARISON: None FINDINGS: BONES/JOINTS: No acute fracture or dislocation. Preservation of the joint spaces. No sclerotic or destructive changes observed. SOFT TISSUES: Small lucencies in the soft tissues of the antecubital fossa suspicious for gas. No radiopaque foreign body. RAD/Forearm 2 Views IMPRESSION: No acute bony abnormality. Probable small gas bubbles in the antecubital soft tissues. at 1523 Reported and signed by: Matt Aguayo MD Electronically Signed: Matt Aguayo MD at 15:22 EDT Tel , Service support ,
--- NOTE | 2020-11-28 12:58 | RAD_ITS ---
HISTORY: BILAT UE STS, HX IV DRUG USE EXAMINATION/TECHNIQUE: XR Forearm 2 Views: COMPARISON: None FINDINGS: BONES/JOINTS: No acute fracture or dislocation. Preservation of the joint spaces. No sclerotic or destructive changes observed. SOFT TISSUES: No soft tissue swelling or gas. No radiopaque foreign body. RAD/Forearm 2 Views IMPRESSION: No acute bony abnormality. at 1524 Reported and signed by: Matt Aguayo MD Electronically Signed: Matt Aguayo MD at 15:23 EDT Tel , Service support ,
[2020-11-28] MEDS: Acetaminophen 325 MG Tablet 650 MG PO (14:30)
[2020-11-28] MEDS: Amox/Clavulanate 875 MG Tablet PO (22:10)
[2020-11-29] VITALS (15 sets, daily range): BP systolic 115–133; BP diastolic 60–74; PULSE 75–90; RESP 15–18; TEMP 37.1–38.3; O2SAT 90–98
[2020-11-29] MEDS: 0.9% Normal Saline 1,000 ML 100 ML IV ×3 (00:21→20:23)
[2020-11-29] MEDS: Amox/Clavulanate 875 MG Tablet PO ×2 (10:26→21:22)
--- NOTE | 2020-11-29 11:14 | NURSING ---
Notified social work that patient is to have court today in his home state and patient is requesting for SW to fax paperwork showing proof of hospitalization. Provided information to SW regarding same. Also, SW made aware that patient's personal belongings are at the hotel he was staying at. Patient is requesting same.
--- NOTE | 2020-11-29 13:43 | CASEMGMT ---
SW met w/pt in room in regard to overdose and self pay status. Pt is normally fully independent with ADLs, staying at the [facility] but normally lives in [place]. 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 His plan from here is to return to the [facility] and continue working. Pt was concerned that his belongings may be missing from the [facility], SW gave pt the number to the [facility] to check on his belongings. Pt also had informed his nurse that he has a court date today in [place] and needs a letter faxed to the courts saying he is here. SW called multiple numbers, spoke w/[facility]riminal [facility] in [facility]([phone]). SW informed the court date is actually 12/06/20 at 1pm, SW gave him this information and the number to the court. SW let pt know this, pt states understanding. SW asked pt about the overdose. Pt states it was unintentional, was not trying to harm himself. Pt states he uses heroin and ice, but has not been using much. Pt states he took a small amount of ice, less than what he would normally use. He states wonders if he was already sick and this is why he ended up in the hospital with an overdose. Pt states he has not used regularly for 5 years. Pt may be interested in NA or in local resources. Pt is planning on staying in [place] for now. Pt does not want to attend virtual meetings however, wants to go in person. SW called [facility], they are unaware of any in person NA meetings at this time. SW let pt know. SW gave pt information on [facility] as a place to follow up should he want help in regard to substance abuse. In regard to self pay status, pt states he should have had insurance as of November 23 through his employer. SW did give pt resources for prescription assist, the number to our financial dept to call with insurance information, and a Medicaid application in the event his insurance does not come through. At this time no further needs, resources given, SW available should any additional needs arise. DAVIDA Queen
[2020-11-29] MEDS: Acetaminophen 325 MG Tablet 650 MG PO (16:19)
--- NOTE | 2020-11-29 18:08 | PN.HOSP_ITS ---
Subjective Subjective Weaned down to room air today however he still feels short of breath and has very sensitive cough reflex with deep inspiration Objective Data Objective Data Vital Signs: Vital Signs Temp Pulse Resp BP Pulse Ox 99.6 F H 85 18 133/74 H 94 11/29/20 17:11 11/29/20 16:12 11/29/20 16:12 11/29/20 16:12 11/29/20 16:12 Oxygen Flow Rate (L/min) 1 Oxygen Delivery Method Room Air Weight: 201 lb 15.095 oz Body Mass Index (BMI) 25.2 Intake & Output: Intake and Output for Last 24 Hours 11/28/20 11/29/20 11/30/20 03:59 03:59 03:59 Intake Total 3468.01 / 3468.01 3714.33 / 3714.33 1940 / 1940 Output Total 1999 1675 / 1675 2575 / 2575 Balance 1468.01 / 1468.01 2039.33 / 2039.33 -635 / -635 Lab / Micro Data Result Diagrams: 11/28/20 11:10 11/28/20 11:10 Micro: Microbiology 11/26/20 01:05 Blood Culture (Wb) - Right Hand Blood Culture - Preliminary No growth in 48 hours. 11/26/20 01:00 Blood Culture (Wb) - Left Hand Blood Culture - Preliminary No growth in 48 hours. 11/26/20 01:40 Urine Catheter - Catheter Urine Culture - Final Culture exhibits no growth. Rhythm Strip Rhythm Strip: Sinus Tach Rate: 102 Ectopy: None Physical Exam Const alert, oriented x3 and no apparent distress HEENT normocephalic and moist oral mucous membranes Eyes PERRL, EOMs intact bilaterally and conjunctivae normal Neck supple and no JVD Resp normal respiratory effort, no retractions, no use of accessory muscles and clear to auscultation bilaterally Auscultation: diminished lung sounds bilateral lower; Negative for rales, rhonchi or wheezes Cardio regular rate, regular rhythm, S1 normal heart sound, S2 normal heart sound and no murmurs GI soft to palpation, non-tender and non-distended; Negative for hepatosplenomegaly Extremity no clubbing, cyanosis or edema Skin no rashes or lesions noted Neuro moves all extremities, no focal motor deficits and no sensory deficits noted Psych mental status grossly normal and affect normal Appearance: appropriate Assessment & Plan Assessment/Plan (1) Drug overdose: (2) Aspiration pneumonitis: PLAN: #Acute metabolic encephalopathy due to drug overdose * subutex held on admission due to patient's metabolic encephalopathy * patient is more alert and communicative today. * wbc today is pending * encourage working wiht PT/OT and getting out of bed. * 11/29/2020-encephalopathy has resolved, will recheck CBC in the morning. He has been refusing Subutex therefore will discontinue #Acute aspiration insufficiency due to aspiration pneumonitis * now down to 2L of oxygen, titrate to maintain sats>90% * on IV unasyn * urine bacteria showed 1+ bacteria * blood cultures pending. On IV unasyn. * 11/29/2020?on room air, and transition from Unasyn to Augmentin #History of hepatitis * liver enzymes were mildly elevated. Likely due to history of hepatitis. * to follow up with PCP on outpatient basis * #LUE swelling * has swelling and pain in both UEs. Due to his history of IV drug use, will get xrays of both UEs to be on the safer side. * 11/29/2020?x-rays are unremarkable and he has no longer complaining of any pain in his upper extremities, exam is normal #Lactic acidosis:resolved #Chronic dug abuse: urine tox was positive for amphetamines. Counseled to quit. DVT prophylaxis: lovenox. Charges/Coding Visit Charges Inpatient E&M: 87894 Subs Hosp L2
[2020-11-30] VITALS (8 sets, daily range): BP systolic 115–127; BP diastolic 67–71; PULSE 57–83; RESP 16–18; TEMP 36.7–37.8; O2SAT 93–97
[2020-11-30] MEDS: Acetaminophen 325 MG Tablet 650 MG PO ×2 (03:12→09:53)
[2020-11-30 06:15] LABS: Absolute Lymphocyte Count 1.26 X10^3/uL (0.83-4.51); Absolute Neutrophil Count 5.5 X10^3/uL (2.0-7.7); Basophil# 0.03 X10^3/uL; Basophil% 0.3 % (0-1); Eosinophil# 0.26 X10^3/uL; Hematocrit 32.5 % (40-54); Lymphocyte # 1.26 X10^3/ul (0.83-4.51); Lymphocyte % 14.5 % (19-41); Mean Corp Hgb Conc 33.8 g/dL (32-36); Mean Corpuscular Hgb 30.2 pg (27.0-32.0); Mean Corpuscular Volume 89.3 fL (80-94); Mean Platelet Vol. 10.4 fl (6.2-12.0); Monocyte# 1.44 X10^3/uL; Monocyte% 16.6 % (0-10); NRBC Flagged by Analyzer 0 % (0-5); Neutrophil # 5.54 X10^3/uL (2.7-7.7); Neutrophil % 64.1 % (47-70); Platelet Count 200 K/mm3 (150-450); RBC Distribution Width CV 14.4 % (11.6-14.6); RBC Distribution Width SD 47.5 fl (35.1-43.9); Red Blood Count 3.64 M/mm3 (4.6-6.2); White Blood Count 8.7 K/mm3 (4.4-11.0)
[2020-11-30] MEDS: 0.9% Normal Saline 1,000 ML 100 ML IV (06:24)
[2020-11-30 07:03] LABS: Anion Gap 7 (5-15); BUN 10 mg/dL (7-18); BUN/Creat Ratio 15.5 RATIO (10-20); Calcium,Total 7.8 mg/dL (8.5-10.1); Chloride 110 mmol/L (98-107); Creatinine, Serum 0.64 mg/dL (0.70-1.30); EST Glomerular Filtration Rate 150 mL/min (>60); Est Glom Filt Rate - Afr Amer 181 mL/min (>60); Estimated Creatinine Clearance 192.55 ml/min; Glucose 96 mg/dL (74-106); Potassium 3.7 mmol/L (3.5-5.1); Sodium Level 143 mmol/L (136-145)
[2020-11-30] MEDS: Amox/Clavulanate 875 MG Tablet PO (08:43)
--- NOTE | 2020-11-30 10:34 | PCM.DC ---
Discharge Instructions Diet Discharge Diet: No restrictions Activity Discharge Activity: Return to Normal Activity Dressing / Incision Call your doctor if you observe: Fever of 101 or Higher, Shortness of breath, Dizziness, Fainting spells, Swelling in the ankles, Chest pain and Increased palpitations (irregular heartbeat) Follow Up Care Test Results: Test results from this visit will be discussed in further detail at your follow-up appointment, if applicable. Discharge Plan Admission Admit Date/Time: 11/26/20 02:39 Attending Provider: Osvaldo Rivers Primary Care Provider: Froilan PhysicianAfshan Primary Instructions Patient Instructions: ED Overdose, Opiate Additional Instructions / Restrictions: You can take ibuprofen 400 to 600 mg every 6 hours as needed for pain to allow you to breathe freely. 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 Discharge Orders/Prescriptions Prescriptions: New amoxicillin-pot clavulanate 875-125 mg Tablet 875 mg PO BID Qty: 14 RF: 0 ibuprofen [Motrin IB] 200 mg capsule 400 mg PO Q6H PRN (Reason: pain) Qty: 20 RF: 0 Referrals / Follow Up: Care Physician,Afshan Primary [Primary Care Provider] - Disposition Disposition (needs filled in before D/C Order can be placed): Home, self care
[2020-11-30] MEDS: Ketorolac 30 MG/ML Syringe IV (10:41)
--- NOTE | 2020-11-30 10:53 | PHA.DC.MC ---
Pharmacy Service has performed discharge medication reconciliation and counseling for this patient. 1. AUGMENTIN 875MG PO BID X 7 DAYS 2. IBUPROFEN 400MG PO Q6H PRN PAIN The patient's discharge medication list was reviewed for discrepancies and discrepancies were resolved. Home Medications amoxicillin-pot clavulanate 875 mg PO BID #14 tab 11/30/20 ibuprofen [Motrin IB] 400 mg PO Q6H PRN #20 cap 11/30/20 The patient was counseled on the following discharge medications and changes in medications for homegoing were reviewed. The Reason for Use, instructions for use, and potential side effects were reviewed for all new medications. The patient's questions regarding all of their medications were answered. The patient was able to verbally demonstrate an understanding of their discharge medications.
--- NOTE | 2020-11-30 12:03 | PCM.DC.SUM ---
Providers Date of Admission: 11/26/20 Primary Care Physician: No Primary Care Phys Reason For Visit: ACUTE ASPIRATION, DRUG OVERDOSE Diagnosis Discharge Diagnosis (1) Drug overdose: Status: Acute Code(s): T50.901A - Poisoning by unspecified drugs, medicaments and biological substances, accidental (unintentional), initial encounter (2) Aspiration pneumonitis: Status: Acute Code(s): J69.0 - Pneumonitis due to inhalation of food and vomit Medications at Discharge Home Medications amoxicillin-pot clavulanate 875 mg PO BID #14 tab 11/30/20 ibuprofen [Motrin IB] 400 mg PO Q6H PRN #20 cap 11/30/20 Hospital Course Operations None Procedures None Summary of Care Provided Minutes Spent on Discharge: 40 Hospital Course: Per HPI: MINNIE HERNANDEZ, is a 35 M who was brought into the emergency room at [facility] after being found unresponsive at a local motel. A drug overdose was suspected and the patient was given 2 doses of Narcan with return of spontaneous respirations and some alertness. Patient was noted to have vomited at some point before the squad arrived. Patient was not able to give a clear picture of what drugs he took. Work-up in the emergency room revealed the patient's white blood cell count to be slightly elevated, lactic acid was elevated, patient's liver profile showed an elevated AST, ALT, and alkaline phosphatase. Urine tox screen was not collected by the emergency room physician. Patient's chest x-ray showed a diffuse infiltrative pattern over the left lung. Patient was given Unasyn in the emergency room, I have elected to continue IV antibiotics, it is unknown whether the patient has an aspiration pneumonia or just aspiration. Patient will be admitted to PCU, he is stable at this time on nasal cannula oxygen. Patient supposedly was on Subutex as an outpatient, I have elected at this time not to place the patient back on Subutex due to his lethargy. Hospital Course: 1. Acute metabolic encephalopathy secondary to drug overdose resulting in acute hypoxic respiratory failure secondary to aspiration [id number] male who presented to the hospital after being found unresponsive at a local motel secondary to an overdose from opiates. He states that he intermittently uses fentanyl or heroin but has not been consistent about his use. He is up here from [place] for work and thinks that maybe he got bad drugs. He is steadily been able to be weaned off of oxygen he still has some pain with inhalation and therefore was given a dose of Toradol today on discharge and will be advised to take ibuprofen 400 to 600 mg every 6 hours as needed to assist with the pain. He will also be continued on Augmentin to prevent infection. He has been counseled extensively on using the incentive spirometer and the importance of taking deep breaths to keep his airways open. He also has some arm pain and swelling in both of his arms that was thought to be secondary to an allergic reaction to the tape. There is no redness or sign of infection, and x-rays were negative. He has no longer complaining of any arm pain. I discussed with him the plan for discharge today and he expressed understanding of the risk benefits of going home and would like to go home today. He states that he would likely be returning to [place] as his current job position up here was ending on Sunday. 2. Elevated LFTs secondary to hepatitis chronic medical condition which complicates his care. Home medications were continued were appropriate Physical Exam Const alert, oriented x3 and no apparent distress HEENT normocephalic and moist oral mucous membranes Eyes PERRL, EOMs intact bilaterally and conjunctivae normal Neck supple and no JVD Resp normal respiratory effort, no retractions, no use of accessory muscles and clear to auscultation bilaterally Auscultation: diminished lung sounds bilateral lower; Negative for rales, rhonchi or wheezes Cardio regular rate, regular rhythm, S1 normal heart sound, S2 normal heart sound and no murmurs GI soft to palpation, non-tender and non-distended; Negative for hepatosplenomegaly Extremity no clubbing, cyanosis or edema Skin no rashes or lesions noted Neuro moves all extremities, no focal motor deficits and no sensory deficits noted Psych mental status grossly normal and affect normal Appearance: appropriate Weight / BMI Weight Weight: 201 lb 15.095 oz Body Mass Index (BMI) 25.2 ABG / Lab / Microbiology Data Result Diagrams: 11/30/20 06:06 11/30/20 06:06 Laboratory: Laboratory Results - last 24 hr 11/30/20 11/30/20 06:06 06:06 WBC 8.7 RBC 3.64 L Hgb 11.0 L Hct 32.5 L MCV 89.3 MCH 30.2 MCHC 33.8 RDW Std Deviation 47.5 H RDW Coeff of Latricia 14.4 Plt Count 200 MPV 10.4 Immature Gran % (Auto) 1.500 H Neut % (Auto) 64.1 Lymph % (Auto) 14.5 L Hamlin % (Auto) 16.6 H Eos % (Auto) 3.0 Baso % (Auto) 0.3 Absolute Neuts (auto) 5.5 Absolute Lymphs (auto) 1.26 Nucleated RBC % 0 Sodium 143 Potassium 3.7 Chloride 110 H Carbon Dioxide 26.0 Anion Gap 7 BUN 10 Creatinine 0.64 L Estim Creat Clear Calc 192.55 Est GFR (MDRD) Af Amer 181 Est GFR (MDRD) Non-Af 150 BUN/Creatinine Ratio 15.5 Glucose 96 Calcium 7.8 L Microbiology: Microbiology 11/26/20 01:05 Blood Culture (Wb) - Right Hand Blood Culture - Preliminary No growth in 48 hours. 11/26/20 01:00 Blood Culture (Wb) - Left Hand Blood Culture - Preliminary No growth in 48 hours. 11/26/20 01:40 Urine Catheter - Catheter Urine Culture - Final Culture exhibits no growth. D/C Instructions Discharge Diet: No restrictions Call your doctor if you observe: Fever of 101 or Higher, Shortness of breath, Dizziness, Fainting spells, Swelling in the ankles, Chest pain and Increased palpitations (irregular heartbeat) Meaningful Use Info Meaningful Use Diagnoses (Choose all that apply): None applicable Discharge Plan Admission Admit Date/Time: 11/26/20 02:39 Attending Provider: Osvaldo Rivers Primary Care Provider: Care Physician,No Primary Instructions Patient Instructions: ED Overdose, Opiate Additional Instructions / Restrictions: You can take ibuprofen 400 to 600 mg every 6 hours as needed for pain to allow you to breathe freely. 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 Discharge Orders/Prescriptions Prescriptions: New amoxicillin-pot clavulanate 875-125 mg Tablet 875 mg PO BID Qty: 14 RF: 0 ibuprofen [Motrin IB] 200 mg capsule 400 mg PO Q6H PRN (Reason: pain) Qty: 20 RF: 0 Referrals / Follow Up: Care Physician,No Primary [Primary Care Provider] - Disposition Disposition (needs filled in before D/C Order can be placed): Home, self care Charges/Coding Visit Charges Inpatient E&M: 16236 Disch Hosp
== END 2020-11-30 16:19 | disposition home or self-care (01) | DRG 917 ==
LOC: ED 11-26 00:11 → PCU 11-26 02:43
PROVIDERS: Student in an Organized Health Care Education/Training Program; Admitting Provider Internal Medicine; Emergency Provider Emergency Medicine; Visit Provider Family Medicine
DX: T40.601A Poisoning by unspecified narcotics, accidental (unintentional), initial encounter (principal); J69.0 Pneumonitis due to inhalation of food and vomit; G93.41 Metabolic encephalopathy; J96.01 Acute respiratory failure with hypoxia; G92 Toxic encephalopathy; E87.2 Acidosis; R74.01 Elevation of levels of liver transaminase levels; K73.9 Chronic hepatitis, unspecified
CPT/HCPCS: 36415; 71045; 73030; 73090; 80048; 80053; 80307; 81001; 83605; 85025; 85610; 85730; 87040; 87086; 93005; 94640; 94762; 97802; 99285; 99406; J7030; J7050; A4216; J0295; J2310; J2405